=== PATIENT | male | born 1955 | race Caucasian/White ===

== ENCOUNTER → 2017-08-02 | Outpatient (CLI) | payer OTHER ==
[2017-08-02 14:45] LABS: CREATININE 1.8 mg/dL (0.7-1.3)
== END ==
LOC: CAT 13:47
PROVIDERS: Nurse Practitioner
DX: J98.11 Atelectasis (principal); I25.10 Atherosclerotic heart disease of native coronary artery without angina pectoris

== ENCOUNTER → 2019-07-24 | Outpatient (CLI) | payer OTHER ==
[~2019-07-24] MED LIST: ASPIR 8181 MG PO; AVAPRO300 MG PO; BREO ELLIPTA 11 EACH INH; BYSTOLIC20 MG PO; CEFDINIR300 MG PO; FLONASE 0.05%50 MCG NASAL; HUMALOG100 UNIT/1 SUBQ; HYDROCHLOROTHIA25 M2 PO; LEVEMIR SUBQ; ZOCOR20 MG PO
== END ==
LOC: RAD 08:21
DX: J98.6 Disorders of diaphragm (principal)

== ENCOUNTER 2020-08-19 18:10 | Emergency (ER) | payer OTHER ==
[~2020-08-19] VITALS: Ht 167.6 cm; Wt 97.1 kg
[2020-08-19] MEDS ORDERED: ASPIRIN EC81 M1 PO (20:12)
[2020-08-19] MEDS ORDERED: NORVASC5 M1 PO (20:12)
[2020-08-19] MEDS ORDERED: ZETIA10 MG PO (20:13)
[2020-08-19] MEDS ORDERED: COREG12.5 MG PO (20:13)
[2020-08-19] MEDS ORDERED: PROSCAR 5MG TABL5 M1 PO (20:13)
[2020-08-19] MEDS ORDERED: BREO ELLIPTA 11 EACH INH (20:14)
[2020-08-19] MEDS ORDERED: HYDROCHLOROTHIA25 M1 PO (20:14)
[2020-08-19] MEDS ORDERED: LEVEMIR FL100 UNIT/2 SUBQ ×2 (20:15)
[2020-08-19] MEDS ORDERED: HUMALOG100 UNIT/1 SUBQ (20:16)
[2020-08-19] MEDS ORDERED: VALSARTAN320 MG PO (20:17)
[2020-08-19] MEDS ORDERED: SIMVASTATIN80 MG PO (20:17)
[2020-08-19] MEDS ORDERED: FLOMAX0.4 MG PO (20:17)
[2020-08-19 20:26] LABS: ABSOLUTE NEUTROPHILS 9.2 thou/uL (1.4-8.2); BASOPHILS 0.6 % (0.0-2.0); EOSINOPHILS 1.2 % (0.0-3.0); HEMATOCRIT 44.4 % (42.0-52.0); HEMOGLOBIN 14.6 gm/dL (14.0-18.0); LYMPHOCYTES 12.7 % (24.0-44.0); MCH 31.1 pg (26.0-34.0); MCHC 32.8 g/dL (28.0-37.0); MCV 94.7 fL (80.0-100.0); MONOCYTES 8.7 % (1.0-8.0); PLATELET COUNT 159 thou/uL (150-400); POLYS 76.8 % (36.0-66.0); RBC 4.69 mil/uL (4.50-6.00); RDW 13.8 % (10.5-14.5)
[2020-08-19 20:34] LABS: ANION GAP 12 mmol/L (7-16); BUN 48 mg/dL (7-18); CALCIUM 8.5 mg/dL (8.5-10.1); CHLORIDE 102 mmol/L (98-107); CO2 22 mmol/L (21-32); CREATININE 2.1 mg/dL (0.7-1.3); GLUCOSE 258 mg/dL (74-106); SODIUM 136 mmol/L (136-145)
[2020-08-19 20:44] LABS: ALBUMIN 3.2 g/dL (3.4-5.0); SGOT 23 U/L (15-37); SGPT 21 U/L (16-63); TOTAL BILIRUBIN 0.6 mg/dL (0.2-1.0); TOTAL PROTEIN 6.7 g/dL (6.4-8.2); TROPONIN-I <0.06 ng/mL (<0.06)
[2020-08-19 22:23] VITALS: BP 140/68
--- NOTE | 2020-08-20 07:32 | EKG ---
[address] [address] [place] [address] ELECTROCARDIOGRAM REPORT Name: MARIZOL BASHIR Room #: [facility] [id number] Admission: 08/19/20 Attend Phys: Discharge: 08/19/20 Date of : 55 Report #: [id number] [facility] ED Test Date: 2020-08-19 Test Time: 20:28:35 Pat Name: MARIZOL BASHIR Department: Room: Gender: M Dye Lab Technician: [email or web address] : 1955 Requested By: Ad Villagomez Order Number: [id number] MD: Vinnie Miles Measurements Intervals [place] Rate: 71 P: 220 WI: 207 QRS: 264 QRSD: 149 T: 83 QT: 474 QTc: 516 Interpretive Statements Atrial-sensed ventricular-paced rhythm No further analysis attempted due to paced rhythm Baseline wander in lead(s) II,III,aVF,V1 No previous ECG available for comparison Electronically Signed On 08-20-2020 7:32:40 CDT by Vinnie Miles [email or web address] <ELECTRONICALLY SIGNED> By: Vinnie Miles MD, [facility] 08/20/20 0732 27 27 Vinnie Miles MD, FACC /EPI
== END 2020-08-19 22:24 | disposition home or self-care (01) ==
LOC: ER 18:10
PROVIDERS: Emergency Medicine
DX: I67.9 Cerebrovascular disease, unspecified (principal); R20.2 Paresthesia of skin; E11.22 Type 2 diabetes mellitus with diabetic chronic kidney disease; I12.9 Hypertensive chronic kidney disease with stage 1 through stage 4 chronic kidney disease, or unspecified chronic kidney disease; N18.9 Chronic kidney disease, unspecified; Z79.899 Other long term (current) drug therapy; Z79.4 Long term (current) use of insulin; Z95.0 Presence of cardiac pacemaker

== ENCOUNTER → 2020-09-20 | Outpatient (CLI) | payer OTHER ==
[~2020-09-20] MED LIST changes: +ASPIRIN EC81 M1 PO; +COREG12.5 MG PO; +FLOMAX0.4 MG PO; +HYDROCHLOROTHIA25 M1 PO; +LEVEMIR FL100 UNIT/2 SUBQ; +NORVASC5 M1 PO; +PROSCAR 5MG TABL5 M1 PO; +SIMVASTATIN80 MG PO; +VALSARTAN320 MG PO; +ZETIA10 MG PO
== END ==
LOC: MRI 09:49
PROVIDERS: ATTEND Family Medicine
DX: G93.89 Other specified disorders of brain (principal)